=== PATIENT | female | born 1960 | race Two or more races ===

== ENCOUNTER → 2017-05-09 | Outpatient (CLI) | payer OTHER ==
[~2017-05-09] MED LIST: DICLOFENAC SODI50 MG PO; LEVSIN/SL0.125 MG SL; PRILOSEC10 MG PO; PRILOSEC20 MG PO; SIMETHICONE80 MG PO
== END | disposition home or self-care (01) ==
LOC: RAD 15:24
DX: M54.16 Radiculopathy, lumbar region (principal)

== ENCOUNTER 2017-09-11 07:28 | Outpatient (CLI) | payer OTHER | END 2017-09-11 07:46 | disposition home or self-care (01) | LOC: LAB 07:28 | DX: J06.9 Acute upper respiratory infection, unspecified (principal); R42 Dizziness and giddiness; E03.9 Hypothyroidism, unspecified ==

== ENCOUNTER 2017-09-23 16:09 | Outpatient (CLI) | payer OTHER | END 2017-09-23 16:40 | disposition home or self-care (01) | LOC: RAD 16:09 → LAB 16:09 → RAD 16:40 | DX: M79.672 Pain in left foot (principal) ==

== ENCOUNTER → 2018-02-13 06:38 | Outpatient (CLI) | payer OTHER | END | disposition home or self-care (01) | LOC: LAB 06:38 | DX: R53.1 Weakness (principal); E78.4 Other hyperlipidemia ==

== ENCOUNTER → 2018-02-17 10:35 | Outpatient (CLI) | payer OTHER | END | disposition home or self-care (01) | LOC: LAB 10:35 | DX: Z11.3 Encounter for screening for infections with a predominantly sexual mode of transmission (principal) ==

== ENCOUNTER 2018-03-25 15:08 | Outpatient (CLI) | payer OTHER ==
[~2018-03-25 15:08] MED LIST changes: +DICLOFENAC SOD100 G1 TOP; +METHOCARBAMOL750 MG PO
== END 2018-03-25 15:51 | disposition home or self-care (01) ==
LOC: MAMO-SONO 15:08
DX: Z12.31 Encounter for screening mammogram for malignant neoplasm of breast (principal); N64.3 Galactorrhea not associated with childbirth

== ENCOUNTER 2018-05-09 10:30 | Outpatient (CLI) | payer OTHER | END 2018-05-09 17:36 | disposition home or self-care (01) | LOC: LAB 10:30 | DX: J11.1 Influenza due to unidentified influenza virus with other respiratory manifestations (principal); J06.9 Acute upper respiratory infection, unspecified ==

== ENCOUNTER 2018-06-26 08:08 | Outpatient (CLI) | payer OTHER ==
[~2018-06-26 08:08] MED LIST changes: +CYCLOBENZAPRINE10 MG PO
== END 2018-06-26 17:00 | disposition home or self-care (01) ==
LOC: SONOGRAMA 08:08
DX: M79.671 Pain in right foot (principal)

== ENCOUNTER 2018-08-02 07:11 | Outpatient (CLI) | payer OTHER | END 2018-08-02 07:20 | disposition home or self-care (01) | LOC: LAB 07:11 | DX: E78.4 Other hyperlipidemia (principal); Z00.00 Encounter for general adult medical examination without abnormal findings; R42 Dizziness and giddiness ==

== ENCOUNTER → 2018-09-09 | Outpatient (CLI) | payer OTHER | END | disposition home or self-care (01) | LOC: RAD 15:18 | DX: S39.012A Strain of muscle, fascia and tendon of lower back, initial encounter (principal) ==

== ENCOUNTER 2018-10-14 08:13 | Outpatient (CLI) | payer OTHER | END 2018-10-14 08:16 | disposition home or self-care (01) | LOC: MRI 08:13 | DX: M54.5 Low back pain (principal); M51.16 Intervertebral disc disorders with radiculopathy, lumbar region | CPT/HCPCS: 72148 ==

== ENCOUNTER 2018-12-13 07:39 | Outpatient (CLI) | payer OTHER | END 2018-12-13 07:45 | disposition home or self-care (01) | LOC: LAB 07:39 | DX: Z00.00 Encounter for general adult medical examination without abnormal findings (principal); E78.49 Other hyperlipidemia; E55.9 Vitamin D deficiency, unspecified; R42 Dizziness and giddiness ==

== ENCOUNTER → 2018-12-31 | Outpatient (CLI) | payer OTHER | END | disposition home or self-care (01) | LOC: RAD 16:02 | DX: M25.561 Pain in right knee (principal) ==

== ENCOUNTER 2019-02-14 11:10 | Outpatient (CLI) | payer OTHER | END 2019-02-14 11:17 | disposition home or self-care (01) | LOC: LAB 11:10 | DX: J11.1 Influenza due to unidentified influenza virus with other respiratory manifestations (principal); R10.84 Generalized abdominal pain; J06.9 Acute upper respiratory infection, unspecified ==

== ENCOUNTER 2019-03-11 08:09 | Outpatient (CLI) | payer OTHER | END 2019-03-11 08:18 | disposition home or self-care (01) | LOC: LAB 08:09 | DX: E03.8 Other specified hypothyroidism (principal); Z00.00 Encounter for general adult medical examination without abnormal findings; I10 Essential (primary) hypertension; E78.00 Pure hypercholesterolemia, unspecified; Z11.4 Encounter for screening for human immunodeficiency virus [HIV]; Z12.11 Encounter for screening for malignant neoplasm of colon; E55.9 Vitamin D deficiency, unspecified; Z21 Asymptomatic human immunodeficiency virus [HIV] infection status; R79.89 Other specified abnormal findings of blood chemistry ==

== ENCOUNTER → 2019-03-11 | Outpatient (CLI) | payer OTHER | END | disposition home or self-care (01) | LOC: SONOGRAMA 08:39 | DX: N94.0 Mittelschmerz (principal); R10.2 Pelvic and perineal pain; N94.89 Other specified conditions associated with female genital organs and menstrual cycle ==

== ENCOUNTER 2019-03-30 14:23 | Outpatient (CLI) | payer OTHER | END 2019-03-30 15:10 | disposition home or self-care (01) | LOC: MAMO-SONO 14:23 | DX: Z12.31 Encounter for screening mammogram for malignant neoplasm of breast (principal); Z87.898 Personal history of other specified conditions; N64.59 Other signs and symptoms in breast; N64.89 Other specified disorders of breast; N63.10 Unspecified lump in the right breast, unspecified quadrant; N63.20 Unspecified lump in the left breast, unspecified quadrant ==

== ENCOUNTER 2019-08-14 06:36 | Outpatient (CLI) | payer OTHER | END 2019-08-14 06:52 | disposition home or self-care (01) | LOC: LAB 06:36 | DX: R10.2 Pelvic and perineal pain (principal); Z12.11 Encounter for screening for malignant neoplasm of colon; Z13.6 Encounter for screening for cardiovascular disorders; R10.30 Lower abdominal pain, unspecified; Z00.00 Encounter for general adult medical examination without abnormal findings ==

== ENCOUNTER 2019-08-14 11:11 | Outpatient (CLI) | payer OTHER | END 2019-08-14 11:14 | disposition home or self-care (01) | LOC: EKG 11:11 | DX: Z13.6 Encounter for screening for cardiovascular disorders (principal) ==

== ENCOUNTER 2019-08-19 09:14 | Outpatient (CLI) | payer OTHER | END 2019-08-19 09:22 | disposition home or self-care (01) | LOC: SONOGRAMA 09:14 | DX: R10.2 Pelvic and perineal pain (principal); R10.30 Lower abdominal pain, unspecified ==

== ENCOUNTER 2019-08-19 09:59 | Outpatient (CLI) | payer OTHER | END 2019-08-19 10:04 | disposition home or self-care (01) | LOC: LAB 09:59 | DX: R10.2 Pelvic and perineal pain (principal); Z12.11 Encounter for screening for malignant neoplasm of colon; R10.30 Lower abdominal pain, unspecified; Z00.00 Encounter for general adult medical examination without abnormal findings; Z13.6 Encounter for screening for cardiovascular disorders ==

== ENCOUNTER → 2019-11-14 11:30 | Outpatient (CLI) | payer OTHER | END | disposition home or self-care (01) | LOC: LAB 11:30 | PROVIDERS: ATTEND Internal Medicine Cardiovascular Disease | DX: R05 Cough (principal); Z20.828 Contact with and (suspected) exposure to other viral communicable diseases; R06.2 Wheezing; R50.9 Fever, unspecified ==

== ENCOUNTER 2020-01-14 08:00 | Outpatient (CLI) | payer OTHER | END 2020-01-14 15:00 | disposition home or self-care (01) | LOC: PPH VACUNA 08:00 | DX: Z23 Encounter for immunization (principal) ==

== ENCOUNTER 2020-02-23 12:29 | Outpatient (CLI) | payer OTHER | END 2020-02-23 12:31 | disposition home or self-care (01) | LOC: NUCLEAR 12:29 | PROVIDERS: ATTEND Internal Medicine Cardiovascular Disease | DX: M81.0 Age-related osteoporosis without current pathological fracture (principal) ==

== ENCOUNTER → 2020-04-16 07:15 | Outpatient (CLI) | payer OTHER | END | disposition home or self-care (01) | LOC: RAD 07:15 | PROVIDERS: ATTEND Orthopaedic Surgery | DX: M54.5 Low back pain (principal); M16.12 Unilateral primary osteoarthritis, left hip ==

== ENCOUNTER 2020-04-23 07:44 | Emergency (ER) | payer OTHER ==
[~2020-04-23] VITALS: Ht 149.9 cm; Wt 60.3 kg
== END 2020-04-23 10:51 | disposition home or self-care (01) ==
LOC: ER 07:44
DX: S33.8XXA Sprain of other parts of lumbar spine and pelvis, initial encounter (principal); X50.9XXA Other and unspecified overexertion or strenuous movements or postures, initial encounter; Y93.89 Activity, other specified; Y92.89 Other specified places as the place of occurrence of the external cause; Y99.8 Other external cause status

== ENCOUNTER 2020-10-11 07:26 | Outpatient (CLI) | payer OTHER ==
[~2020-10-11 07:26] MED LIST changes: +LIPITOR20 MG PO
== END 2020-10-11 07:27 | disposition home or self-care (01) ==
LOC: LAB 07:26
PROVIDERS: ATTEND Internal Medicine Cardiovascular Disease
DX: I10 Essential (primary) hypertension (principal); E11.9 Type 2 diabetes mellitus without complications; E03.9 Hypothyroidism, unspecified

== ENCOUNTER → 2021-01-13 | Outpatient (CLI) | payer OTHER | END | disposition home or self-care (01) | LOC: TOM 15:07 | PROVIDERS: ATTEND Internal Medicine Cardiovascular Disease | DX: R41.2 Retrograde amnesia (principal); G44.89 Other headache syndrome ==

== ENCOUNTER 2021-01-23 08:00 | Outpatient (CLI) | payer OTHER | END 2021-01-23 08:30 | disposition home or self-care (01) | LOC: PPH VACUNA 08:00 | PROVIDERS: ATTEND Emergency Medicine Pediatric Emergency Medicine | DX: Z23 Encounter for immunization (principal) ==

== ENCOUNTER 2021-02-03 10:06 | Emergency (ER) | payer OTHER ==
[~2021-02-03] VITALS: Ht 149.9 cm; Wt 59.9 kg
[2021-02-03] MEDS ORDERED: KETO10TA2 PO (14:44)
[2021-02-03] MEDS ORDERED: NORFLEX100MG PO (14:44)
== END 2021-02-03 14:51 | disposition home or self-care (01) ==
LOC: ER 10:06
DX: M54.59 Other low back pain (principal); R30.0 Dysuria

== ENCOUNTER 2021-02-21 06:40 | Emergency (ER) | payer OTHER ==
[~2021-02-21] VITALS: Ht 149.9 cm; Wt 62.6 kg
[~2021-02-21 06:40] MED LIST changes: +KETO10TA2 PO; +NORFLEX100MG PO
== END 2021-02-21 08:37 | disposition home or self-care (01) ==
LOC: ER 06:40
DX: M79.604 Pain in right leg (principal); Y93.89 Activity, other specified; Y92.018 Other place in single-family (private) house as the place of occurrence of the external cause; X50.9XXA Other and unspecified overexertion or strenuous movements or postures, initial encounter

== ENCOUNTER 2021-05-01 12:38 | Outpatient (CLI) | payer OTHER | END 2021-05-01 12:46 | disposition home or self-care (01) | LOC: MAMO-SONO 12:38 | PROVIDERS: ATTEND Obstetrics & Gynecology | DX: N63.0 Unspecified lump in unspecified breast (principal); N64.89 Other specified disorders of breast; N64.59 Other signs and symptoms in breast ==

== ENCOUNTER 2021-05-18 14:37 | Outpatient (CLI) | payer OTHER | END 2021-05-18 14:45 | disposition home or self-care (01) | LOC: LAB 14:37 | DX: U07.1 COVID-19 (principal) ==

== ENCOUNTER 2021-06-06 13:36 | Outpatient (CLI) | payer OTHER | END 2021-06-06 14:48 | disposition home or self-care (01) | LOC: RAD 13:36 | PROVIDERS: ATTEND Internal Medicine Cardiovascular Disease | DX: M12.9 Arthropathy, unspecified (principal); M19.90 Unspecified osteoarthritis, unspecified site ==

== ENCOUNTER → 2021-06-10 07:15 | Outpatient (CLI) | payer OTHER | END | disposition home or self-care (01) | LOC: LAB 06:43 | PROVIDERS: ATTEND Internal Medicine Cardiovascular Disease | DX: I10 Essential (primary) hypertension (principal); E11.9 Type 2 diabetes mellitus without complications; E03.9 Hypothyroidism, unspecified ==

== ENCOUNTER 2021-07-07 15:07 | Outpatient (CLI) | payer OTHER | END 2021-07-07 15:14 | disposition home or self-care (01) | LOC: RAD 15:07 | PROVIDERS: ATTEND Internal Medicine Cardiovascular Disease | DX: M46.47 Discitis, unspecified, lumbosacral region (principal) ==

== ENCOUNTER 2021-07-23 10:54 | Emergency (ER) | payer OTHER ==
[~2021-07-23] VITALS: Ht 142.2 cm; Wt 60.8 kg
== END 2021-07-23 16:49 | disposition home or self-care (01) ==
LOC: ER 10:54
DX: K29.00 Acute gastritis without bleeding (principal); R10.30 Lower abdominal pain, unspecified

== ENCOUNTER 2021-09-26 07:25 | Emergency (ER) | payer OTHER ==
[~2021-09-26] VITALS: Ht 149.9 cm; Wt 60.8 kg
[2021-09-26] MEDS ORDERED: DICLOFENAC POTA50 MG PO (12:50)
[2021-09-26] MEDS ORDERED: ORPHENADRINE C100 MG PO (12:50)
== END 2021-09-26 13:19 ==
LOC: ER 07:25
DX: R10.11 Right upper quadrant pain (principal); M54.9 Dorsalgia, unspecified

== ENCOUNTER 2021-10-06 06:32 | Outpatient (CLI) | payer OTHER ==
[~2021-10-06 06:32] MED LIST changes: +DICLOFENAC POTA50 MG PO; +ORPHENADRINE C100 MG PO
== END 2021-10-06 07:51 | disposition home or self-care (01) ==
LOC: LAB 06:32
PROVIDERS: ATTEND Internal Medicine Cardiovascular Disease
DX: E03.9 Hypothyroidism, unspecified (principal); I10 Essential (primary) hypertension; E11.9 Type 2 diabetes mellitus without complications; E78.2 Mixed hyperlipidemia

== ENCOUNTER 2021-11-11 13:22 | Outpatient (CLI) | payer OTHER | END 2021-11-11 13:33 | disposition home or self-care (01) | LOC: LAB 13:22 | DX: Z20.828 Contact with and (suspected) exposure to other viral communicable diseases (principal) ==

== ENCOUNTER 2021-12-05 07:52 | Outpatient (CLI) | payer OTHER | END 2021-12-05 10:37 | disposition home or self-care (01) | LOC: LAB 07:52 | PROVIDERS: ATTEND Internal Medicine Cardiovascular Disease | DX: I10 Essential (primary) hypertension (principal); E11.9 Type 2 diabetes mellitus without complications; E03.9 Hypothyroidism, unspecified; E78.2 Mixed hyperlipidemia ==

== ENCOUNTER → 2021-12-08 12:10 | Outpatient (CLI) | payer OTHER | END | disposition home or self-care (01) | LOC: LAB 12:10 | PROVIDERS: ATTEND Internal Medicine Cardiovascular Disease | DX: N39.0 Urinary tract infection, site not specified (principal) ==

== ENCOUNTER → 2021-12-11 | Outpatient (CLI) | payer OTHER | END | disposition home or self-care (01) | LOC: SONOGRAMA 08:04 | PROVIDERS: ATTEND Internal Medicine Cardiovascular Disease | DX: R10.9 Unspecified abdominal pain (principal) ==

== ENCOUNTER 2022-01-17 09:09 | Outpatient (CLI) | payer OTHER | END 2022-01-17 09:14 | disposition home or self-care (01) | LOC: PPH VACUNA 09:09 | PROVIDERS: ATTEND Emergency Medicine Pediatric Emergency Medicine | DX: Z23 Encounter for immunization (principal) ==

== ENCOUNTER 2022-02-02 06:29 | Outpatient (CLI) | payer OTHER | END 2022-02-02 06:30 | disposition home or self-care (01) | LOC: LAB 06:29 | PROVIDERS: ATTEND Radiology Diagnostic Radiology | DX: K57.30 Diverticulosis of large intestine without perforation or abscess without bleeding (principal) ==

== ENCOUNTER 2022-02-06 06:50 | Outpatient (CLI) | payer OTHER | END 2022-02-06 07:10 | disposition home or self-care (01) | LOC: TOM 06:50 | PROVIDERS: ATTEND Internal Medicine Gastroenterology | DX: R10.13 Epigastric pain (principal); R10.30 Lower abdominal pain, unspecified; K57.30 Diverticulosis of large intestine without perforation or abscess without bleeding; R14.3 Flatulence ==

== ENCOUNTER 2022-02-15 13:17 | Outpatient (CLI) | payer OTHER | END 2022-02-15 13:19 | disposition home or self-care (01) | LOC: MAMO-SONO 13:17 | PROVIDERS: ATTEND Surgery | DX: Z12.31 Encounter for screening mammogram for malignant neoplasm of breast (principal) ==

== ENCOUNTER → 2022-05-26 | Emergency (ER) | payer OTHER ==
[~2022-05-26] VITALS: Ht 149.9 cm; Wt 60.8 kg
== END | disposition home or self-care (01) ==
LOC: ER 06:57
DX: S33.5XXA Sprain of ligaments of lumbar spine, initial encounter (principal); X50.9XXA Other and unspecified overexertion or strenuous movements or postures, initial encounter; Y93.9 Activity, unspecified; Y92.9 Unspecified place or not applicable; Y99.9 Unspecified external cause status

== ENCOUNTER 2022-06-08 06:51 | Outpatient (CLI) | payer OTHER | END 2022-06-08 06:52 | disposition home or self-care (01) | LOC: LAB 06:51 | PROVIDERS: ATTEND Internal Medicine Cardiovascular Disease | DX: I10 Essential (primary) hypertension (principal); E11.9 Type 2 diabetes mellitus without complications; E03.9 Hypothyroidism, unspecified; E78.2 Mixed hyperlipidemia; E55.9 Vitamin D deficiency, unspecified ==

== ENCOUNTER → 2022-07-11 06:32 | Outpatient (CLI) | payer OTHER | END | disposition home or self-care (01) | LOC: LAB 06:32 | PROVIDERS: ATTEND Internal Medicine Cardiovascular Disease | DX: E78.2 Mixed hyperlipidemia (principal) ==

== ENCOUNTER 2022-08-06 06:29 | Outpatient (CLI) | payer OTHER | END 2022-08-06 06:36 | disposition home or self-care (01) | LOC: LAB 06:29 | PROVIDERS: ATTEND Internal Medicine Gastroenterology | DX: Z11.52 Encounter for screening for COVID-19 (principal); Z20.822 Contact with and (suspected) exposure to COVID-19; Z20.828 Contact with and (suspected) exposure to other viral communicable diseases ==

== ENCOUNTER → 2022-09-05 | Outpatient (CLI) | payer OTHER | END | disposition home or self-care (01) | LOC: TOM 06:57 | PROVIDERS: ATTEND Internal Medicine Cardiovascular Disease | DX: R10.9 Unspecified abdominal pain (principal); K57.30 Diverticulosis of large intestine without perforation or abscess without bleeding ==

== ENCOUNTER → 2022-10-29 06:32 | Outpatient (CLI) | payer OTHER | END | disposition home or self-care (01) | LOC: LAB 06:32 | PROVIDERS: ATTEND Obstetrics & Gynecology | DX: I10 Essential (primary) hypertension (principal); E03.9 Hypothyroidism, unspecified; E78.00 Pure hypercholesterolemia, unspecified; N39.0 Urinary tract infection, site not specified; Z11.4 Encounter for screening for human immunodeficiency virus [HIV]; Z12.11 Encounter for screening for malignant neoplasm of colon; E55.9 Vitamin D deficiency, unspecified; Z21 Asymptomatic human immunodeficiency virus [HIV] infection status; R79.9 Abnormal finding of blood chemistry, unspecified; R79.89 Other specified abnormal findings of blood chemistry; Z00.00 Encounter for general adult medical examination without abnormal findings ==

== ENCOUNTER 2022-11-01 06:46 | Outpatient (CLI) | payer OTHER | END 2022-11-01 06:47 | disposition home or self-care (01) | LOC: LAB 06:46 | PROVIDERS: ATTEND Obstetrics & Gynecology | DX: Z12.11 Encounter for screening for malignant neoplasm of colon (principal) ==

== ENCOUNTER → 2022-12-27 | Outpatient (CLI) | payer OTHER | END | disposition home or self-care (01) | LOC: PPH VACUNA | PROVIDERS: ATTEND Emergency Medicine Pediatric Emergency Medicine | DX: Z23 Encounter for immunization (principal) | CPT/HCPCS: 90686; G0008 ==

== ENCOUNTER 2022-12-28 06:52 | Outpatient (CLI) | payer OTHER | END 2022-12-28 06:53 | disposition home or self-care (01) | LOC: LAB 06:52 | PROVIDERS: ATTEND Internal Medicine Cardiovascular Disease | DX: I10 Essential (primary) hypertension (principal); E11.9 Type 2 diabetes mellitus without complications; E03.9 Hypothyroidism, unspecified; E78.2 Mixed hyperlipidemia ==

== ENCOUNTER 2023-01-01 13:40 | Outpatient (CLI) | payer OTHER | END 2023-01-01 13:45 | disposition home or self-care (01) | LOC: RAD 13:40 | PROVIDERS: ATTEND Internal Medicine Cardiovascular Disease | DX: M12.9 Arthropathy, unspecified (principal) ==

== ENCOUNTER → 2023-01-11 10:59 | Outpatient (CLI) | payer OTHER | END | disposition home or self-care (01) | LOC: SONOGRAMA 10:59 | PROVIDERS: ATTEND Internal Medicine Cardiovascular Disease | DX: M12.9 Arthropathy, unspecified (principal) ==

== ENCOUNTER 2023-01-17 11:46 | Outpatient (CLI) | payer OTHER | END 2023-01-17 12:10 | disposition home or self-care (01) | LOC: SONOGRAMA 11:46 | PROVIDERS: ATTEND Orthopaedic Surgery | DX: M25.511 Pain in right shoulder (principal) ==

== ENCOUNTER → 2023-03-02 07:09 | Outpatient (CLI) | payer OTHER ==
[2023-03-02 08:22] LABS: URINE APPEARANCE Clear; URINE BILIRRUBIN Negative (NEGATIVE); URINE BLOOD Negative; URINE COLOR Yellow; URINE GLUCOSE Negative (NEGATIVE); URINE LEUKOCYTE Negative; URINE NITRATE Negative; URINE PROTEIN Negative (NEGATIVE)
[2023-03-02 08:38] LABS: PARTIAL THROMBOPLASTIN TIME 26.7 SECONDS (22.0-34.0); PROTHROMBIN TIME 10.5 SECONDS (9.0-11.5)
[2023-03-02 08:43] LABS: ALBUMIN 3.8 gm/dL (3.4-5.0); BILIRUBIN TOTAL 0.95 mg/dL (0.3-1.2); CALCIUM 9.1 mg/dL (8.5-10.1); CREATININE SERUM 0.62 mg/dL (0.55-1.02); GFR 97.22; GLOBULINA 3.3 G/DL (2.4-3.5); POTASSIUM 4.03 mEq/L (3.5-5.1); TOTAL PROTEIN 7.1 gm/dL (6.4-8.2)
[2023-03-02 08:55] LABS: HEMATOCRIT 37.5 % (36.0-45.00); HEMOGLOBIN 12.9 g/dL (12.0-15.00); MEAN CELL VOLUME 87.8 fL (80.00-100.00); MEAN CORPUSCULAR HEMOGLOBIN 30.1 pg (27.00-32.0); MEAN CORPUSCULAR HGB CONC 34.3 g/dl (32.0-36.0); PLATELET COUNT 216 K/uL (150-450); RED BLOOD COUNT 4.27 M/uL (4.00-6.00); RED CELL DISTRIBUTION WIDTH 13.1 % (11.5-14.5)
[2023-03-02 09:44] LABS: URINE MUCUS SCANT; URINE WBC 0-2 /hpf
[2023-03-02 09:45] LABS: URINE BACTERIA FEW; URINE RBC 0-3 /HPF
== END | disposition home or self-care (01) ==
LOC: LAB 07:09
PROVIDERS: ATTEND Orthopaedic Surgery
DX: D68.9 Coagulation defect, unspecified (principal); E78.2 Mixed hyperlipidemia; N39.0 Urinary tract infection, site not specified; Z20.828 Contact with and (suspected) exposure to other viral communicable diseases; Z20.818 Contact with and (suspected) exposure to other bacterial communicable diseases; R07.9 Chest pain, unspecified

== ENCOUNTER 2023-05-31 09:27 | Outpatient (CLI) | payer OTHER ==
[2023-05-31 10:21] LABS: HEMATOCRIT 39.8 % (36.0-45.00); HEMOGLOBIN 13.5 g/dL (12.0-15.00); MEAN CELL VOLUME 88.9 fL (80.00-100.00); MEAN CORPUSCULAR HEMOGLOBIN 30.1 pg (27.00-32.0); MEAN CORPUSCULAR HGB CONC 33.9 g/dl (32.0-36.0); PLATELET COUNT 222 K/uL (150-450); RED BLOOD COUNT 4.48 M/uL (4.00-6.00); RED CELL DISTRIBUTION WIDTH 13.8 % (11.5-14.5)
[2023-05-31 10:33] LABS: PH,URINE 7.5 (5.0-8.0); URINE APPEARANCE Clear; URINE BILIRRUBIN Negative (NEGATIVE); URINE BLOOD Negative; URINE COLOR Yellow; URINE GLUCOSE Negative (NEGATIVE); URINE LEUKOCYTE Negative; URINE NITRATE Negative; URINE PROTEIN Negative (NEGATIVE); URINE UROBILINOGEN 0.2 E.U./dl
[2023-05-31 10:34] LABS: URINE BACTERIA 6.2 uL (0.0-1933)
[2023-05-31 10:52] LABS: URINE EPITHELIAL CELLS 1.2 uL (0.0-38.8); URINE WBC 0.3 uL (0.0-23.2)
[2023-05-31 11:09] LABS: ALBUMIN 4.2 gm/dL (3.4-5.0); BILIRUBIN TOTAL 0.77 mg/dL (0.3-1.2); CALCIUM 9.6 mg/dL (8.5-10.1); CHOL HDL RATIO 2.8 (0-5.0); CREATININE SERUM 0.68 mg/dL (0.55-1.02); GFR 87.39; GLOBULINA 3.1 G/DL (2.4-3.5); POTASSIUM 4.24 mEq/L (3.5-5.1); T4 FREE 1.21 NG/ML (0.76-1.46); TOTAL PROTEIN 7.3 gm/dL (6.4-8.2); TSH 1.22 uIU/mL (0.358-3.74)
== END 2023-05-31 09:33 | disposition home or self-care (01) ==
LOC: LAB 09:27
PROVIDERS: ATTEND Obstetrics & Gynecology
DX: I10 Essential (primary) hypertension (principal); E03.9 Hypothyroidism, unspecified; N39.0 Urinary tract infection, site not specified; Z11.4 Encounter for screening for human immunodeficiency virus [HIV]; Z12.11 Encounter for screening for malignant neoplasm of colon; Z21 Asymptomatic human immunodeficiency virus [HIV] infection status; R79.9 Abnormal finding of blood chemistry, unspecified; R79.89 Other specified abnormal findings of blood chemistry; Z00.00 Encounter for general adult medical examination without abnormal findings

== ENCOUNTER → 2023-05-31 | Outpatient (CLI) | payer OTHER ==
[~2023-05-31] MED LIST changes: +ETODOLAC400 MG PO; +NABUMETONE750 MG PO
== END | disposition home or self-care (01) ==
LOC: MAMO-SONO 10:24
PROVIDERS: ATTEND Obstetrics & Gynecology
DX: N63 Unspecified lump in breast (principal); N64.59 Other signs and symptoms in breast; N64.9 Disorder of breast, unspecified

== ENCOUNTER → 2023-06-03 | Outpatient (CLI) | payer OTHER | END | disposition home or self-care (01) | LOC: RAD 10:15 | PROVIDERS: ATTEND Internal Medicine Cardiovascular Disease | DX: M17.9 Osteoarthritis of knee, unspecified (principal); M19.90 Unspecified osteoarthritis, unspecified site ==

== ENCOUNTER → 2023-06-04 10:52 | Outpatient (CLI) | payer OTHER ==
[2023-06-04 12:37] LABS: ob NEGATIVE (NEGATIVE)
== END | disposition home or self-care (01) ==
LOC: LAB 10:52
PROVIDERS: ATTEND Obstetrics & Gynecology
DX: E03.9 Hypothyroidism, unspecified (principal); I10 Essential (primary) hypertension; Z00.00 Encounter for general adult medical examination without abnormal findings; N39.0 Urinary tract infection, site not specified; Z11.4 Encounter for screening for human immunodeficiency virus [HIV]; Z12.11 Encounter for screening for malignant neoplasm of colon; E55.9 Vitamin D deficiency, unspecified; Z21 Asymptomatic human immunodeficiency virus [HIV] infection status; R78.9 Finding of unspecified substance, not normally found in blood; R78.89 Finding of other specified substances, not normally found in blood

== ENCOUNTER 2023-07-28 07:22 | Emergency (ER) | payer OTHER ==
[~2023-07-28] VITALS: Ht 149.9 cm; Wt 60.8 kg
[~2023-07-28 07:22] MED LIST changes: +MEDROLPACK PO
[2023-07-28] MEDS ORDERED: KETOROLAC TROMETHAMINE 30 MG VIAL IM STA (08:23)
== END 2023-07-28 08:37 | disposition home or self-care (01) ==
LOC: ER 07:22
DX: R22.1 Localized swelling, mass and lump, neck (principal)

== ENCOUNTER 2023-07-29 09:25 | Outpatient (CLI) | payer OTHER | END 2023-07-29 09:35 | disposition home or self-care (01) | LOC: SONOGRAMA 09:25 | PROVIDERS: ATTEND General Practice | DX: R22.1 Localized swelling, mass and lump, neck (principal) ==

== ENCOUNTER → 2023-08-08 06:25 | Outpatient (CLI) | payer OTHER ==
[~2023-08-08 06:25] MED LIST changes: +ADVIL DUAL ACT1 EACH PO; +METAXALONE800 MG PO
[2023-08-08 08:16] LABS: T4 FREE 0.98 NG/ML (0.76-1.46); TSH 1.96 uIU/mL (0.358-3.74)
== END | disposition home or self-care (01) ==
LOC: LAB 06:25
PROVIDERS: ATTEND Internal Medicine Cardiovascular Disease
DX: E03.9 Hypothyroidism, unspecified (principal)

== ENCOUNTER 2023-08-09 12:37 | Emergency (ER) | payer OTHER ==
[~2023-08-09] VITALS: Ht 149.9 cm; Wt 60.8 kg
[~2023-08-09 12:37] MED LIST changes: -ADVIL DUAL ACT1 EACH PO; -METAXALONE800 MG PO
[2023-08-09] MEDS ORDERED: ORPHENADRINE CITRATE 30 MG/ML AMPUL IM STA (14:35)
[2023-08-09] MEDS ORDERED: KETOROLAC TROMETHAMINE 15 MG VIAL IM STA (14:35)
[2023-08-09] MEDS ORDERED: ADVIL DUAL ACT1 EACH PO (14:53)
[2023-08-09] MEDS ORDERED: METAXALONE800 MG PO (14:53)
== END 2023-08-09 14:59 | disposition home or self-care (01) ==
LOC: ER 12:37
DX: M54.89 Other dorsalgia (principal)

== ENCOUNTER 2023-08-12 13:04 | Outpatient (CLI) | payer OTHER ==
[~2023-08-12 13:04] MED LIST changes: +ADVIL DUAL ACT1 EACH PO; +METAXALONE800 MG PO
== END 2023-08-12 13:30 | disposition home or self-care (01) ==
LOC: RAD 13:04
PROVIDERS: ATTEND Internal Medicine Cardiovascular Disease
DX: M46.47 Discitis, unspecified, lumbosacral region (principal)

== ENCOUNTER → 2023-11-16 07:12 | Outpatient (CLI) | payer OTHER ==
[2023-11-16 09:06] LABS: HEMOGLOBIN 13.3 g/dL (12.0-15.00); MEAN CORPUSCULAR HEMOGLOBIN 30.5 pg (27.00-32.0); MEAN CORPUSCULAR HGB CONC 34.2 g/dl (32.0-36.0); PLATELET COUNT 223 K/uL (150-450); RED BLOOD COUNT 4.38 M/uL (4.00-6.00); RED CELL DISTRIBUTION WIDTH 13.8 % (11.5-14.5)
[2023-11-16 09:18] LABS: PH,URINE 7.5 (5.0-8.0); URINE APPEARANCE Clear; URINE BILIRRUBIN Negative (NEGATIVE); URINE BLOOD Negative; URINE COLOR Yellow; URINE GLUCOSE Negative (NEGATIVE); URINE LEUKOCYTE Negative; URINE NITRATE Negative; URINE PROTEIN Negative (NEGATIVE); URINE UROBILINOGEN 0.2 E.U./dl
[2023-11-16 09:24] LABS: URINE BACTERIA 81.8 uL (0.0-1933); URINE EPITHELIAL CELLS 15.7 uL (0.0-38.8); URINE RBC 5.1 uL (0.0-20.8)
[2023-11-16 09:35] LABS: URINE WBC 1.6 uL (0.0-23.2)
[2023-11-16 09:58] LABS: ALBUMIN 4.1 gm/dL (3.4-5.0); BILIRUBIN TOTAL 1.21 mg/dL (0.3-1.2); CALCIUM 9.5 mg/dL (8.5-10.1); CHOL HDL RATIO 2.9 (0-5.0); CREATININE SERUM 0.58 mg/dL (0.55-1.02); GFR 104.66; GLOBULINA 3.2 G/DL (2.4-3.5); POTASSIUM 4.27 mEq/L (3.5-5.1); T4 TOTAL 7.19 UG/DL (4.8-13.9); TOTAL PROTEIN 7.3 gm/dL (6.4-8.2); TSH 1.37 uIU/mL (0.358-3.74)
== END | disposition home or self-care (01) ==
LOC: LAB 07:12
PROVIDERS: ATTEND Internal Medicine Cardiovascular Disease
DX: I10 Essential (primary) hypertension (principal); E11.9 Type 2 diabetes mellitus without complications; E03.9 Hypothyroidism, unspecified; E78.2 Mixed hyperlipidemia

== ENCOUNTER 2024-01-30 11:30 | Outpatient (CLI) | payer OTHER | END 2024-01-30 12:00 | disposition home or self-care (01) | LOC: PPH VACUNA 11:30 | PROVIDERS: ATTEND Emergency Medicine Pediatric Emergency Medicine | DX: Z23 Encounter for immunization (principal) ==

== ENCOUNTER → 2024-02-05 | Outpatient (CLI) | payer OTHER | END | disposition home or self-care (01) | LOC: TOM 15:18 | PROVIDERS: ATTEND Internal Medicine Cardiovascular Disease | DX: R51.9 Headache, unspecified (principal) ==

== ENCOUNTER 2024-02-10 08:12 | Outpatient (CLI) | payer OTHER | END 2024-02-10 08:14 | disposition home or self-care (01) | LOC: SONOGRAMA 08:12 | PROVIDERS: ATTEND Pathology Anatomic Pathology & Clinical Pathology | DX: R59.0 Localized enlarged lymph nodes (principal); R59.9 Enlarged lymph nodes, unspecified ==

== ENCOUNTER 2024-03-11 07:01 | Emergency (ER) | payer OTHER ==
[~2024-03-11] VITALS: Ht 149.9 cm; Wt 61.7 kg
[2024-03-11 07:15] VITALS: BP 115/73; O2SAT 100
== END 2024-03-11 09:03 | disposition home or self-care (01) ==
LOC: ER 07:01
DX: S61.218A Laceration without foreign body of other finger without damage to nail, initial encounter (principal); X58.XXXA Exposure to other specified factors, initial encounter; Y93.89 Activity, other specified; Y92.89 Other specified places as the place of occurrence of the external cause; Y99.8 Other external cause status

== ENCOUNTER 2024-03-30 08:42 | Emergency (ER) | payer OTHER ==
[~2024-03-30] VITALS: Ht 149.9 cm; Wt 60.8 kg
[2024-03-30] MEDS ORDERED: 0.9 % SODIUM CHLORIDE 1,000 ML IV SCH (09:31)
[2024-03-30 10:23] LABS: HEMATOCRIT 39.1 % (36.0-45.00); HEMOGLOBIN 13.3 g/dL (12.0-15.00); MEAN CELL VOLUME 89.5 fL (80.00-100.00); MEAN CORPUSCULAR HEMOGLOBIN 30.4 pg (27.00-32.0); PLATELET COUNT 194 K/uL (150-450); RED BLOOD COUNT 4.37 M/uL (4.00-6.00); RED CELL DISTRIBUTION WIDTH 13.4 % (11.5-14.5)
[2024-03-30 10:44] LABS: CALCIUM 8.5 mg/dL (8.5-10.1); CREATININE SERUM 0.61 mg/dL (0.55-1.02); GFR 98.74; POTASSIUM 3.01 mEq/L (3.5-5.1)
[2024-03-30] MEDS ORDERED: ACETAMINOPHEN 500 MG GEL..CAP PO ONE (11:15)
[2024-03-30 12:32] LABS: URINE APPEARANCE Clear; URINE BILIRRUBIN Negative (NEGATIVE); URINE BLOOD Negative; URINE COLOR Yellow; URINE GLUCOSE Negative (NEGATIVE); URINE LEUKOCYTE Negative; URINE NITRATE Negative; URINE PROTEIN Trace (NEGATIVE); URINE UROBILINOGEN 0.2 E.U./dl
[2024-03-30 12:37] LABS: URINE BACTERIA 464.9 uL (0.0-1933); URINE EPITHELIAL CELLS 33.5 uL (0.0-38.8); URINE RBC 15.8 uL (0.0-20.8); URINE WBC 14.6 uL (0.0-23.2)
[2024-03-30 12:39] LABS: URINE KETONE 40 (NEGATIVE)
== END 2024-03-30 14:28 | disposition home or self-care (01) ==
LOC: ER 08:44
PROVIDERS: Emergency Medicine
DX: K52.89 Other specified noninfective gastroenteritis and colitis (principal)

== ENCOUNTER 2024-04-10 11:14 | Outpatient (CLI) | payer OTHER ==
[2024-04-10 12:12] LABS: CREATININE SERUM 0.73 mg/dL (0.55-1.02)
== END 2024-04-10 11:15 | disposition home or self-care (01) ==
LOC: LAB 11:14
PROVIDERS: ATTEND Radiology Diagnostic Radiology
DX: R10.9 Unspecified abdominal pain (principal)

== ENCOUNTER 2024-04-15 06:33 | Outpatient (CLI) | payer OTHER | END 2024-04-15 07:00 | disposition home or self-care (01) | LOC: TOM 06:33 | PROVIDERS: ATTEND Internal Medicine Cardiovascular Disease | DX: R10.9 Unspecified abdominal pain (principal); K40.90 Unilateral inguinal hernia, without obstruction or gangrene, not specified as recurrent ==

== ENCOUNTER 2024-05-06 09:50 | Emergency (ER) | payer OTHER ==
[~2024-05-06] VITALS: Ht 149.9 cm; Wt 64.0 kg
[2024-05-06] MEDS ORDERED: KETOROLAC TROMETHAMINE 15 MG VIAL IM STA (11:42)
[2024-05-06] MEDS ORDERED: KETOROLAC TROMETHAMINE 60 MG VIAL IM ONE (12:18)
[2024-05-06] MEDS ORDERED: ADVIL DUAL ACT1 EACH PO (12:32)
== END 2024-05-06 13:55 | disposition home or self-care (01) ==
LOC: ER 09:50
DX: S46.811A Strain of other muscles, fascia and tendons at shoulder and upper arm level, right arm, initial encounter (principal); W18.39XA Other fall on same level, initial encounter; Y93.89 Activity, other specified; Y92.89 Other specified places as the place of occurrence of the external cause

== ENCOUNTER 2024-05-16 08:25 | Outpatient (CLI) | payer OTHER ==
[2024-05-16 09:19] LABS: URINE APPEARANCE Clear; URINE BILIRRUBIN Negative (NEGATIVE); URINE BLOOD Negative; URINE COLOR Yellow; URINE GLUCOSE Negative (NEGATIVE); URINE KETONE Negative (NEGATIVE); URINE LEUKOCYTE Negative; URINE NITRATE Negative; URINE PROTEIN Negative (NEGATIVE); URINE UROBILINOGEN 0.2 E.U./dl
[2024-05-16 09:46] LABS: HEMATOCRIT 39.3 % (36.0-45.00); HEMOGLOBIN 13.4 g/dL (12.0-15.00); MEAN CELL VOLUME 87.9 fL (80.00-100.00); MEAN CORPUSCULAR HGB CONC 34.2 g/dl (32.0-36.0); PLATELET COUNT 225 K/uL (150-450); RED BLOOD COUNT 4.48 M/uL (4.00-6.00); RED CELL DISTRIBUTION WIDTH 13.5 % (11.5-14.5)
[2024-05-16 09:49] LABS: URINE BACTERIA 32.9 uL (0.0-1933); URINE EPITHELIAL CELLS 2.3 uL (0.0-38.8); URINE RBC 3.8 uL (0.0-20.8)
[2024-05-16 09:51] LABS: ALBUMIN 3.9 gm/dL (3.4-5.0); BILIRUBIN TOTAL 0.99 mg/dL (0.3-1.2); CALCIUM 9.1 mg/dL (8.5-10.1); CHOL HDL RATIO 2.8 (0-5.0); CREATININE SERUM 0.72 mg/dL (0.55-1.02); GFR 81.55; GLOBULINA 3.1 G/DL (2.4-3.5); POTASSIUM 4.15 mEq/L (3.5-5.1); T4 TOTAL 9.19 UG/DL (4.8-13.9); TSH 0.993 uIU/mL (0.358-3.74)
[2024-05-18 11:53] LABS: T3 TOTAL 0.917 ng/ml (0.846-2.02); VITAMIN D3 25 HYDROXY 34.66 ng/ml (30-120)
== END 2024-05-16 08:26 | disposition home or self-care (01) ==
LOC: LAB 08:25
PROVIDERS: ATTEND Internal Medicine Cardiovascular Disease
DX: E55.9 Vitamin D deficiency, unspecified (principal); E11.9 Type 2 diabetes mellitus without complications; E03.9 Hypothyroidism, unspecified; I10 Essential (primary) hypertension; E78.2 Mixed hyperlipidemia; M81.0 Age-related osteoporosis without current pathological fracture

== ENCOUNTER → 2024-05-29 | Outpatient (CLI) | payer OTHER | END | disposition home or self-care (01) | LOC: MAMO-SONO 11:51 | PROVIDERS: ATTEND Radiology Nuclear Radiology | DX: N63 Unspecified lump in breast (principal); N64.59 Other signs and symptoms in breast; N64.9 Disorder of breast, unspecified ==

== ENCOUNTER 2024-07-10 08:27 | Emergency (ER) | payer OTHER ==
[~2024-07-10] VITALS: Ht 149.9 cm; Wt 62.1 kg
[2024-07-10] MEDS ORDERED: KETOROLAC TROMETHAMINE 60 MG VIAL IM STA (09:24)
== END 2024-07-10 12:12 | disposition home or self-care (01) ==
LOC: ER 08:27
DX: R53.81 Other malaise (principal); J10.1 Influenza due to other identified influenza virus with other respiratory manifestations; B34.9 Viral infection, unspecified; Z20.822 Contact with and (suspected) exposure to COVID-19

== ENCOUNTER 2024-07-26 11:47 | Emergency (ER) | payer OTHER ==
[~2024-07-26] VITALS: Ht 149.9 cm; Wt 61.2 kg
[2024-07-26] MEDS ORDERED: KETOROLAC TROMETHAMINE 60 MG VIAL IM ONE (12:15)
[2024-07-26] MEDS ORDERED: ORPHENADRINE CITRATE 30 MG/ML AMPUL IV ONE (12:15)
[2024-07-26] MEDS ORDERED: KETO10TA2 PO (13:11)
[2024-07-26] MEDS ORDERED: NORFLEX100MG PO (13:11)
== END 2024-07-26 13:59 | disposition home or self-care (01) ==
LOC: ER 11:48
DX: M54.9 Dorsalgia, unspecified (principal)

== ENCOUNTER 2024-07-31 12:55 | Outpatient (CLI) | payer OTHER ==
[2024-07-31 13:44] LABS: PH,URINE 5.5 (5.0-8.0); URINE APPEARANCE Clear; URINE BILIRRUBIN Negative (NEGATIVE); URINE BLOOD Negative; URINE COLOR Yellow; URINE GLUCOSE Negative (NEGATIVE); URINE KETONE Negative (NEGATIVE); URINE LEUKOCYTE Trace; URINE NITRATE Negative; URINE PROTEIN Negative (NEGATIVE)
[2024-07-31 13:48] LABS: URINE BACTERIA 227.5 uL (0.0-1933); URINE EPITHELIAL CELLS 36.8 uL (0.0-38.8); URINE RBC 3.8 uL (0.0-20.8); URINE WBC 26.1 uL (0.0-23.2)
== END 2024-07-31 13:50 | disposition home or self-care (01) ==
LOC: LAB 12:55
PROVIDERS: ATTEND Internal Medicine Cardiovascular Disease
DX: N39.0 Urinary tract infection, site not specified (principal)

== ENCOUNTER 2024-09-14 08:29 | Outpatient (CLI) | payer OTHER | END 2024-09-14 09:18 | disposition home or self-care (01) | LOC: SONOGRAMA 08:29 | PROVIDERS: ATTEND Surgery | DX: R22.1 Localized swelling, mass and lump, neck (principal) ==

== ENCOUNTER 2024-10-27 07:09 | Outpatient (CLI) | payer OTHER ==
[2024-10-27 07:41] LABS: BASO % 0.9 % (0.1-1.2); EOS # 0.22 (0.04-0.54); EOS % 5.2 % (0.7-7.0); LYMPH # 1.57 (1.18-3.74); LYMPH % 36.8 % (19.3-53.1); MEAN PLATELET VOLUME 9.50 fl (9.4-12.4); MONO # 0.41 (0.24-0.82); MONO % 9.6 % (4.7-12.5); NEUT # 2.01 (1.56-6.13); NEUT % 47.0 % (34.0-71.1); RED CELL DISTRIBUTION WIDTH 12.4 % (11.6-14.4)
[2024-10-27 07:56] LABS: URINE APPEARANCE Clear; URINE BILIRRUBIN Negative (NEGATIVE); URINE BLOOD Negative; URINE COLOR Yellow; URINE GLUCOSE Negative (NEGATIVE); URINE KETONE Negative (NEGATIVE); URINE LEUKOCYTE Negative; URINE NITRATE Negative; URINE PROTEIN Negative (NEGATIVE); URINE UROBILINOGEN 0.2 E.U./dl
[2024-10-27 08:00] LABS: URINE BACTERIA 51.5 uL (0.0-1933); URINE EPITHELIAL CELLS 6.4 uL (0.0-38.8)
[2024-10-27 08:03] LABS: URINE CAST 0.00 uL (0.0-1.40); URINE RBC 1.3 uL (0.0-20.8); URINE WBC 1.5 uL (0.0-23.2)
[2024-10-27 08:55] LABS: ALT/SGPT 24.0 U/L (12-78); AST/SGOT 16.0 U/L (15-37); BILIRUBIN TOTAL 1.01 mg/dL (0.3-1.2); BUN CREA RATIO 24.0 (7.0-25.0); CHOL HDL RATIO 3.0 (0-5.0); CREATININE SERUM 0.67 mg/dL (0.55-1.02); GFR 88.33; GLOBULINA 2.9 G/DL (2.4-3.5); GLUCOSE FASTING 97.0 mg/dL (65-100); HDL 81.0 mg/dl (40-60); LDL 144.0 mg/dl (0-130); OSMOLALITY SERUM 292.0 MOSM/KG (275-295); T4 TOTAL 7.98 UG/DL (4.8-13.9); TSH 2.4 uIU/mL (0.358-3.74); VLDL 15.0 (0-39)
== END 2024-10-27 07:14 | disposition home or self-care (01) ==
LOC: LAB 07:09
PROVIDERS: ATTEND Internal Medicine Cardiovascular Disease
DX: K80.20 Calculus of gallbladder without cholecystitis without obstruction (principal)

== ENCOUNTER 2024-10-27 07:35 | Outpatient (CLI) | payer OTHER | END 2024-10-27 07:40 | disposition home or self-care (01) | LOC: SONOGRAMA 07:35 | PROVIDERS: ATTEND Surgery | DX: K80.20 Calculus of gallbladder without cholecystitis without obstruction (principal) ==

== ENCOUNTER → 2024-11-25 | Outpatient (CLI) | payer OTHER | END | disposition home or self-care (01) | LOC: RAD 07:48 | PROVIDERS: ATTEND Orthopaedic Surgery | DX: M25.461 Effusion, right knee (principal); M12.00 Chronic postrheumatic arthropathy [Jaccoud], unspecified site ==

== ENCOUNTER 2024-12-11 12:22 | Outpatient (CLI) | payer OTHER ==
[2024-12-11 12:53] LABS: BASO % 0.6 % (0.1-1.2); EOS # 0.20 (0.04-0.54); EOS % 2.8 % (0.7-7.0); LYMPH # 1.22 (1.18-3.74); LYMPH % 16.8 % (19.3-53.1); MEAN PLATELET VOLUME 9.60 fl (9.4-12.4); MONO # 0.51 (0.24-0.82); MONO % 7.0 % (4.7-12.5); NEUT # 5.28 (1.56-6.13); NEUT % 72.7 % (34.0-71.1); RED CELL DISTRIBUTION WIDTH 12.1 % (11.6-14.4)
[2024-12-11 13:26] LABS: MYCOPLASMA PNEUMONIAE IGM NON REACTIVE (NO REACTIVE)
[2024-12-11 13:40] LABS: COVID-19 AG NEGATIVE (NEGATIVE)
== END 2024-12-11 12:26 | disposition home or self-care (01) ==
LOC: LAB 12:22
PROVIDERS: ATTEND Internal Medicine Cardiovascular Disease
DX: J11.1 Influenza due to unidentified influenza virus with other respiratory manifestations (principal); A49.3 Mycoplasma infection, unspecified site; Z20.822 Contact with and (suspected) exposure to COVID-19

== ENCOUNTER 2025-02-17 09:03 | Outpatient (CLI) | payer OTHER | END 2025-02-17 09:13 | disposition home or self-care (01) | LOC: PPH VACUNA 09:03 | PROVIDERS: ATTEND Emergency Medicine Pediatric Emergency Medicine | DX: Z23 Encounter for immunization (principal) ==